=== PATIENT | male | born 1940 | race Caucasian/White ===

== ENCOUNTER 2021-09-14 00:36 | Inpatient (IN) | payer MEDICARE ==
[2021-09-14] MEDS ORDERED: Tranexamic Acid 1,000 MG/10 ML VIAL ONE (00:41)
[2021-09-14 00:57] LABS: #Eosinphils 0.3 thou/uL (0.0-0.7); #Lymphocytes 2.7 thou/uL (1.20-3.40); #Monocytes 0.6 thou/uL (0.11-0.59); #Neutrophils 3.5 thou/uL (1.40-6.50); %Basophils 0.6 % (0.0-1.0); %Monocytes 8.5 % (0.0-10.0); Hemoglobin 9.7 g/dL (14.0-18.0); Mean Corpuscular Hemoglobin 27.6 pg (27.0-31.0); Mean Corpuscular Volume 86.3 fL (78.0-98.0); Mean Platelet Volume 7.1 fL (7.4-10.4); Platelet Count 194 thou/uL (130-400); RBC Distribution Width 15.1 % (11.5-14.5); Red Blood Cell (RBC) Count 3.52 mill/uL (4.70-6.10); White Blood Cell (WBC) Count 7.1 thou/uL (4.8-10.8)
[2021-09-14] MEDS ORDERED: Boostrix 0.5 ML (Tdap) VIAL ONE (00:59)
[2021-09-14] MEDS ORDERED: CEFAZOLIN 1 GM VIAL ONE (00:59)
[2021-09-14 01:11] LABS: ALT (SGPT) 7 U/L (8-55); AST (SGOT) 12 U/L (5-34); Albumin 3.6 g/dL (3.4-4.8); Alkaline Phosphatase 60 U/L (40-110); Anion Gap 17 mmol/L (10-20); BUN (Urea Nitrogen) 26 mg/dL (8.4-25.7); Bilirubin, Total 0.5 mg/dL (0.2-1.2); Calc. Creatinine Clearance 0 mL/min (70-130); Calcium 9.5 mg/dL (7.8-10.44); Carbon Dioxide 21 mmol/L (23-31); Chloride 105 mmol/L (98-107); Estimated GFR 35; Globulin 3.1 g/dL (2.4-3.5); Glucose 117 mg/dL (83-110); Potassium 4.6 mmol/L (3.5-5.1); Protein, Total 6.7 g/dL (5.8-8.1); Sodium 138 mmol/L (136-145)
[2021-09-14 01:16] LABS: INR-International Normal Ratio 1.1; PTT 29.3 sec (22.9-36.1); Prothrombin Time 14.5 sec (12.0-14.7)
[2021-09-14 01:56] LABS: Magnesium 2.1 mg/dL (1.6-2.6); Phosphorus 3.7 mg/dL (2.3-4.7)
[2021-09-14] MEDS ORDERED: Dextrose 50% Abboject 50 ML SYRINGE SLOW IVP PRN (01:56)
[2021-09-14] MEDS ORDERED: Ondansetron PF 4 MG/2 ML Vial IVP PRN (01:56)
[2021-09-14] MEDS ORDERED: Insulin Regular 300 UNITS/3 ML VIAL SC PRN ×2 (01:56)
[2021-09-14] MEDS ORDERED: hydrALAZINE 20 MG/ML VIAL SLOW IVP PRN (01:56)
[2021-09-14] MEDS ORDERED: Dextrose 5% in Water 1,000 ML IV PRN (01:56)
[2021-09-14] MEDS ORDERED: traMADol HCl 50 MG TAB PO PRN ×3 (02:00→12:23)
[2021-09-14] MEDS: Acetaminophen 500 MG TAB PO SCH ×4 (04:45→22:39)
[2021-09-14 06:43] LABS: #Eosinphils 0.2 thou/uL (0.0-0.7); #Lymphocytes 2.2 thou/uL (1.20-3.40); #Monocytes 0.7 thou/uL (0.11-0.59); #Neutrophils 5.8 thou/uL (1.40-6.50); %Basophils 0.3 % (0.0-1.0); %Eosinophils 1.8 % (0.0-10.0); %Lymphocytes 24.3 % (21.0-51.0); %Monocytes 8.3 % (0.0-10.0); %Neutrophils 65.3 % (42.0-75.0); Mean Corpuscular HGB CONC 30.7 g/dL (32.0-36.0); Mean Corpuscular Hemoglobin 26.8 pg (27.0-31.0); Mean Corpuscular Volume 87.3 fL (78.0-98.0); Mean Platelet Volume 7.4 fL (7.4-10.4); Platelet Count 176 thou/uL (130-400); RBC Distribution Width 15.2 % (11.5-14.5); Red Blood Cell (RBC) Count 2.98 mill/uL (4.70-6.10); White Blood Cell (WBC) Count 8.8 thou/uL (4.8-10.8)
[2021-09-14 07:58] VITALS: BMI 27.6
[2021-09-14] MEDS ORDERED: Famotidine 20 MG TAB PO SCH (09:00)
[2021-09-14] MEDS: Ferrous Sulfate 325 MG TAB PO SCH (09:19)
[2021-09-14] MEDS: Polyethylene Glycol 3350 17 GM Packet PO SCH (09:19)
[2021-09-14] MEDS: Senokot S 8.6-50 MG TAB PO SCH ×2 (09:19→20:36)
[2021-09-14] MEDS: Gabapentin 300 MG CAP PO SCH ×2 (09:22→14:27)
[2021-09-14] MEDS: Ascorbic Acid 500 mg Chewable Tablet PO SCH (09:23)
[2021-09-14] MEDS ORDERED: Sodium Chloride 0.9% 1,000 ML IV SCH (12:30)
[2021-09-14] MEDS ORDERED: Loperamide HCl 2 MG CAP PO PRN (19:36)
[2021-09-14] MEDS ORDERED: Melatonin 3 MG TAB PO PRN (20:47)
[2021-09-14] MEDS ORDERED: Gabapentin 300 MG CAP PO SCH (21:00)
[2021-09-14] MEDS ORDERED: Finasteride 5 MG TAB PO SCH (21:00)
[2021-09-14] MEDS ORDERED: Cilostazol 100 MG TAB PO SCH (21:00)
[2021-09-15] MEDS: Acetaminophen 500 MG TAB PO SCH ×2 (05:21→11:25)
[2021-09-15 07:16] LABS: #Eosinphils 0.2 thou/uL (0.0-0.7); #Monocytes 0.8 thou/uL (0.11-0.59); #Neutrophils 6.5 thou/uL (1.40-6.50); %Basophils 0.4 % (0.0-1.0); %Eosinophils 2.1 % (0.0-10.0); %Lymphocytes 21.2 % (21.0-51.0); %Monocytes 8.6 % (0.0-10.0); %Neutrophils 67.7 % (42.0-75.0); Hemoglobin 8.4 g/dL (14.0-18.0); Mean Corpuscular HGB CONC 31.7 g/dL (32.0-36.0); Mean Corpuscular Volume 85.3 fL (78.0-98.0); Mean Platelet Volume 7.4 fL (7.4-10.4); Platelet Count 184 thou/uL (130-400); RBC Distribution Width 15.1 % (11.5-14.5); Red Blood Cell (RBC) Count 3.12 mill/uL (4.70-6.10); White Blood Cell (WBC) Count 9.5 thou/uL (4.8-10.8)
[2021-09-15 07:21] LABS: Chloride 105 mmol/L (98-107); Potassium 4.6 mmol/L (3.5-5.1); Sodium 136 mmol/L (136-145)
[2021-09-15 07:22] LABS: Calcium 9.2 mg/dL (7.8-10.44); Glucose 157 mg/dL (83-110)
[2021-09-15 07:24] LABS: Anion Gap 15 mmol/L (10-20); Carbon Dioxide 21 mmol/L (23-31)
[2021-09-15 07:26] LABS: BUN (Urea Nitrogen) 22 mg/dL (8.4-25.7); Calc. Creatinine Clearance 51 mL/min (70-130); Estimated GFR 46
[2021-09-15 07:28] LABS: Magnesium 1.9 mg/dL (1.6-2.6)
[2021-09-15] MEDS ORDERED: Cilostazol 100 MG TAB PO SCH (07:30)
[2021-09-15] MEDS: Ferrous Sulfate 325 MG TAB PO SCH (08:48)
[2021-09-15] MEDS: Gabapentin 300 MG CAP PO SCH ×2 (08:48→11:25)
[2021-09-15] MEDS: Ascorbic Acid 500 mg Chewable Tablet PO SCH (08:48)
[2021-09-15] MEDS: Polyethylene Glycol 3350 17 GM Packet PO SCH (08:49)
[2021-09-15] MEDS: Senokot S 8.6-50 MG TAB PO SCH (08:49)
[2021-09-15] MEDS ORDERED: DULoxetine 60 MG CAP PO SCH (09:00)
[2021-09-15] MEDS ORDERED: Metoprolol Tartrate 25 MG TAB PO SCH (09:00)
[2021-09-15] MEDS ORDERED: Famotidine 20 MG TAB PO SCH (09:00)
[2021-09-15 12:13] VITALS: BP 142/81; TEMP 97.7
[2021-09-15] MEDS ORDERED: Bacitracin 1 PK TOP SCH (15:00)
== END 2021-09-15 12:18 | disposition home or self-care (01) | DRG 605 ==
LOC: ERS 00:36 → SURG A 01:56
PROVIDERS: ADMIT Surgery; ATTEND Surgery
PROC: 0HQ0XZZ Repair Scalp Skin, External Approach (ICD-10-PCS; principal; 2021-09-14)
DX: S08.0XXA Avulsion of scalp, initial encounter (principal); D62 Acute posthemorrhagic anemia; N17.9 Acute kidney failure, unspecified; Z23 Encounter for immunization; Z20.822 Contact with and (suspected) exposure to COVID-19; Z66 Do not resuscitate; D63.1 Anemia in chronic kidney disease; N18.9 Chronic kidney disease, unspecified; I48.91 Unspecified atrial fibrillation; E11.22 Type 2 diabetes mellitus with diabetic chronic kidney disease; E78.5 Hyperlipidemia, unspecified; I12.9 Hypertensive chronic kidney disease with stage 1 through stage 4 chronic kidney disease, or unspecified chronic kidney disease; G47.33 Obstructive sleep apnea (adult) (pediatric); Z60.2 Problems related to living alone; Z96.641 Presence of right artificial hip joint; W06.XXXA Fall from bed, initial encounter; Y92.003 Bedroom of unspecified non-institutional (private) residence as the place of occurrence of the external cause; Z79.899 Other long term (current) drug therapy; Z79.82 Long term (current) use of aspirin; Z95.0 Presence of cardiac pacemaker; Z95.5 Presence of coronary angioplasty implant and graft; Z98.890 Other specified postprocedural states; Z79.01 Long term (current) use of anticoagulants; Z88.1 Allergy status to other antibiotic agents; Z88.5 Allergy status to narcotic agent; Z88.8 Allergy status to other drugs, medicaments and biological substances
CPT/HCPCS: 36415; 36416; 70450; 71045; 72125; 80048; 80053; 80307; 83605; 83735; 84100; 85025; 85610; 85730; 86850; 86900; 86901; 90715; G0390; J0690; J1815; J7050; U0003; U0005

== ENCOUNTER 2022-02-02 05:58 | Emergency (ER) | payer OTHER ==
[2022-02-02] MEDS ORDERED: Lidocaine 1% PF 5 ML VIAL ONE (06:05)
[2022-02-02] MEDS ORDERED: Bacitracin 1 PK ONE (06:18)
== END 2022-02-02 09:15 | disposition home or self-care (01) ==
LOC: ERS 05:58
DX: S13.4XXA Sprain of ligaments of cervical spine, initial encounter (principal); S01.81XA Laceration without foreign body of other part of head, initial encounter; I10 Essential (primary) hypertension; K21.9 Gastro-esophageal reflux disease without esophagitis; E11.51 Type 2 diabetes mellitus with diabetic peripheral angiopathy without gangrene; W01.0XXA Fall on same level from slipping, tripping and stumbling without subsequent striking against object, initial encounter
CPT/HCPCS: 12011; 70450; 72125; 93005

== ENCOUNTER 2024-01-05 14:18 | Observation (INO) | payer MEDICARE, MEDICAID ==
[~2024-01-05 14:18] MED LIST: Iopamidol-370 76% 500 ML MDV (1 ML CHARGE) ONE
[2024-01-05 15:27] LABS: #Basophils 0.09 10x3/uL (0.0-0.2); %Basophils 1.4 % (0.0-1.0); %Eosinophils 5.4 % (0.0-10.0); %Monocytes 10.7 % (0.0-10.0); %Neutrophils 54.3 % (42.0-75.0); Hematocrit 36.5 % (42.0-52.0); Hemoglobin 12.2 g/dL (14.0-18.0); Mean Corpuscular HGB CONC 33.4 g/dL (32.0-36.0); Mean Corpuscular Hemoglobin 30.7 pg (27.0-31.0); Mean Corpuscular Volume 91.7 fL (78.0-98.0); Mean Platelet Volume 10.4 fL (7.4-10.4); Platelet Count 144 10x3/uL (130-400); Red Blood Cell (RBC) Count 3.98 mill/uL (4.70-6.10)
[2024-01-05 15:36] LABS: ALT (SGPT) 6 U/L (8-55); AST (SGOT) 12 U/L (5-34); Albumin 3.6 g/dL (3.4-4.8); Alkaline Phosphatase 67 U/L (40-110); Anion Gap 11 mmol/L (10-20); BUN (Urea Nitrogen) 11 mg/dL (8.4-25.7); Bilirubin, Total 0.8 mg/dL (0.2-1.2); Calc. Creatinine Clearance 0 mL/min (70-130); Calcium 9.5 mg/dL (7.8-10.44); Carbon Dioxide 27 mmol/L (23-31); Chloride 101 mmol/L (98-107); Estimated GFR 64; Globulin 3.4 g/dL (2.4-3.5); Glucose 148 mg/dL (83-110); Potassium 4.2 mmol/L (3.5-5.1); Sodium 135 mmol/L (136-145)
[2024-01-05 15:42] LABS: INR-International Normal Ratio 1.1; PTT 29.2 sec (22.9-36.1); Prothrombin Time 13.8 sec (12.0-14.7)
[2024-01-05 15:49] LABS: Troponin I 0.038 ng/mL (< 0.028)
[2024-01-05] MEDS ORDERED: Aspirin Chewable 81 MG TAB ONE (17:39)
[2024-01-05 18:18] LABS: Bacteria/HPF None Seen HPF (None Seen); Bilirubin Negative (Negative); Blood, Urine Negative (Negative); CAUTI Indications for Culture Acute Hematuria; Clarity Clear (Clear); Glucose, Urine (Dipstick) 30 mg/dL (Negative); Ketone, Urine Negative (Negative); Leukocyte Negative Leu/uL (Negative); Nitrite Negative (Negative); Protein, Urine (Dipstick) Negative (Neg-Trace); RBC/HPF 0-3 HPF (0-3); Specific Gravity, Urine 1.008 (1.002-1.036); Squamous Epithelial None Seen HPF (0-3); WBC/HPF 0-3 HPF (0-3)
[2024-01-05 18:19] LABS: Urine Culture Reflex No No
[2024-01-05 20:29] LABS: Troponin I 0.039 ng/mL (< 0.028)
[2024-01-05 21:47] VITALS: BMI 23.6
[2024-01-05] MEDS ORDERED: Ipratropium/Albuterol 3 ML NEB NEB PRN (21:51)
[2024-01-05] MEDS ORDERED: Acetaminophen 500 MG TAB PO PRN (21:51)
[2024-01-05] MEDS ORDERED: Docusate 100 MG CAP PO PRN (21:51)
[2024-01-05] MEDS ORDERED: Nitroglycerin 0.4 MG TAB (25 Tab Bottle) SL PRN (21:51)
[2024-01-05] MEDS ORDERED: Benzonatate 100 MG CAP PO PRN (22:12)
[2024-01-05] MEDS: oxyCODONE 5 MG TAB PO SCH (22:53)
[2024-01-05] MEDS: Digoxin 0.125 MG TAB PO SCH (22:54)
[2024-01-05] MEDS: Meloxicam 7.5 MG TAB PO SCH (22:54)
[2024-01-05 23:50] LABS: Troponin I 0.051 ng/mL (< 0.028)
[2024-01-06 04:13] LABS: Hemoglobin A1c 6.8 % (4.0-6.0)
[2024-01-06 04:18] LABS: Cardiac Risk 3.9 (Less than 4.5)
[2024-01-06] MEDS ORDERED: Doxycycline 100 MG CAP PO SCH (09:00)
[2024-01-06] MEDS: glipiZIDE XL 5 mg ER.TAB PO SCH (09:31)
[2024-01-06] MEDS: Acetaminophen 325 MG TAB PO SCH (09:31)
[2024-01-06] MEDS: Pantoprazole DR 40 MG TAB PO SCH (09:33)
[2024-01-06] MEDS: Cyanocobalamin (Vitamin B-12) 1,000 MCG TAB PO SCH (09:33)
[2024-01-06] MEDS: DULoxetine 60 MG CAP PO SCH (09:34)
[2024-01-06] MEDS: Aspirin Chewable 81 MG TAB PO SCH (09:34)
[2024-01-06] MEDS: Gabapentin 300 MG CAP PO SCH (09:34)
[2024-01-06] MEDS: Loratadine 10 MG TAB PO SCH (09:34)
[2024-01-06] MEDS: Cilostazol 100 MG TAB PO SCH (09:34)
[2024-01-06] MEDS: Losartan 25 MG TAB PO SCH (09:54)
[2024-01-06 16:30] VITALS: BP 153/67; TEMP 98.4
[2024-01-06] MEDS ORDERED: Finasteride 5 MG TAB PO SCH (21:00)
== END 2024-01-06 16:43 ==
LOC: ERS 14:18 → 2SE 16:57
PROVIDERS: ADMIT Student in an Organized Health Care Education/Training Program; ATTEND Student in an Organized Health Care Education/Training Program
DX: G45.9 Transient cerebral ischemic attack, unspecified (principal); R79.89 Other specified abnormal findings of blood chemistry; I12.9 Hypertensive chronic kidney disease with stage 1 through stage 4 chronic kidney disease, or unspecified chronic kidney disease; N18.30 Chronic kidney disease, stage 3 unspecified; E11.22 Type 2 diabetes mellitus with diabetic chronic kidney disease; D63.1 Anemia in chronic kidney disease; N40.0 Benign prostatic hyperplasia without lower urinary tract symptoms; K21.9 Gastro-esophageal reflux disease without esophagitis; I48.0 Paroxysmal atrial fibrillation; F17.290 Nicotine dependence, other tobacco product, uncomplicated; Z79.899 Other long term (current) drug therapy; Z79.84 Long term (current) use of oral hypoglycemic drugs; Z79.82 Long term (current) use of aspirin; Z79.51 Long term (current) use of inhaled steroids; Z88.5 Allergy status to narcotic agent; Z88.8 Allergy status to other drugs, medicaments and biological substances; Z88.2 Allergy status to sulfonamides; Z95.818 Presence of other cardiac implants and grafts
CPT/HCPCS: 70450 ×2; 70496; 70498; 71045; 72125; 80053; 80061; 81001; 82962; 83036; 83880; 84443; 84484 ×2; 85025; 85610; 85730; 93005; 97139; 99285; G0378 ×3; Q9967; 36415; 36416